=== PATIENT | male | born 1990 | race Caucasian/White ===

== ENCOUNTER 2023-11-13 18:52 | Emergency (ER) | payer BC, OTHER ==
[2023-11-13] MEDS ORDERED: LIDOCAINE 1% 20 ML MDV ONE (22:18)
--- NOTE | 2023-11-13 22:36 | EDPHYS ---
Physician Documentation [facility] Name: Prashant Billingsley Age: 33 yrs Sex: Male : 1990 Arrival Date: 11/13/2023 Time: 18:52 Bed Treatment Private MD: ED Physician Paige Krishnamurthy HPI: 11/12 22:37 This 33 yrs old Male presents to ER via Ambulatory with complaints of Laceration To kb Foot. 22:37 Patient is a 33-year-old male who presents for laceration to dorsal aspect of right kb foot that occurred just prior to arrival. 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 Denies any other injuries.. Historical: - Allergies: 19:21 No Known Allergies; ss - Home Meds: 19:21 None [Active]; ss - PMHx: 19:21 None; ss - Immunization history:: Last tetanus immunization: unknown. - Infectious Disease History:: Denies. - Social history:: Smoking status: Patient denies any tobacco usage or history of. ROS: 22:36 Constitutional: As per HPI kb Exam: 22:36 Constitutional: This is a well developed, well nourished patient who is awake, alert, kb and in no acute distress. Head/Face: Normocephalic, atraumatic. ENT: Moist Mucous membranes Cardiovascular: Regular rate Respiratory: Respirations even and unlabored. No increased work of breathing. Talking in full sentences MS/ Extremity: Pulses equal, no cyanosis. Neurovascular intact. Full, normal range of motion. Neuro: Awake and alert, GCS 15, oriented to person, place, time, and situation. Moves all extremities. Normal gait. 22:36 Skin: injury, laceration(s), the wound is approximately 2.5 cm(s), of the dorsum of right foot, that can be described as clean, no foreign body, linear, without bleeding, Vital Signs: 19:19 BP 156 / 101; Pulse 73; Resp 16; Temp 98(TE); Pulse Ox 97% on R/A; Weight 92.99 kg; ss Height 5 ft. 10 in. ; Pain 6/10; 23:02 BP 131 / 76; Pulse 69; Resp 16; Temp 97.3(O); Pulse Ox 100% on R/A; tl4 19:19 Body Mass Index 29.41 (92.99 kg, 177.8 cm) ss 19:19 Pain Scale: Adult ss Laceration: 22:35 Wound Repair of 2.5cm ( 1.0in ) subcutaneous laceration to dorsum of right foot. Linear kb shaped.. Distal neuro/vascular/tendon intact. Anesthesia: Wound infiltrated with 3 mls of 1% lidocaine. Wound prep: Extensive cleansing with hibiclenz by me, Wound irrigation with saline by me. Skin closed with 5 4-0 Prolene using simple sutures and sterile technique. Patient tolerated well. MDM: 19:00 Patient medically screened. kb 22:35 Differential diagnosis: superficial laceration, tendon injury, vascular injury. Data kb reviewed: vital signs, nurses notes. Counseling: I had a detailed discussion with the patient and/or guardian regarding the historical points, exam findings, and any diagnostic results supporting the discharge/admit diagnosis, the need for outpatient follow up, a family practitioner, to return to the emergency department if symptoms worsen or persist or if there are any questions or concerns that arise at home. 11/12 20:04 Order name: Dressing - Wound; Complete Time: 22:48 kb 11/12 20:04 Order name: Gloves, Sterile; Complete Time: 22:48 kb 11/12 20:04 Order name: Prolene, Sutures; Complete Time: 22:48 kb 11/12 20:04 Order name: Setup Suture Tray; Complete Time: 22:48 kb Administered Medications: 22:48 Drug: Lidocaine Infiltration (1 %) 1 vials 20 ml Infiltration once; to bedside {Note: tl4 administered by JASPER Brooks.} Volume: 20 ml; Route: Infiltration; 23:18 Follow up: Response: No adverse reaction tl4 22:59 Drug: Boostrix Tdap IM 0.5 ml IM once; as a single dose {Note: [employer] Lot tl4 #[id number] Expiration date 12/29/2025 VIS 10/23/2020.} Route: IM; Site: left deltoid; 23:18 Follow up: Response: No adverse reaction tl4 Disposition Summary: 11/13/23 22:36 Discharge Ordered Condition: Stable kb Diagnosis - Laceration without foreign body of foot kb Followup: kb - With: Emergency Department - When: As needed - Reason: Worsening of condition Followup: kb - With: Private Physician - When: 2 - 3 days - Reason: Recheck today's complaints, Continuance of care, Re-evaluation by your physician Discharge Instructions: - Discharge Summary Sheet kb - Laceration Care, Adult, [id number] kb Forms: - Medication Reconciliation Form kb - Antibiotic Education kb - Prescription Opioid Use kb - Patient Portal Instructions kb - Leadership Thank You Letter kb Signatures: Zohreh Black FNP-C FNP-Ckb Blanchard, Shelby, RN RN ss Nakul Tobar RN RN tl4
--- NOTE | 2023-11-13 22:36 | ER ---
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 Pressure dressing placed to wound prior to arrival by spouse. Coronavirus screen: Client denies travel out of the [place] in the last 14 days. Ebola Screen: Patient denies exposure to infectious person. Patient denies travel to an Ebola-affected area in the 21 days before illness onset. Complicating Factors: There are no complicating factors for this patient. Initial Sepsis Screen: Does the patient meet any 2 criteria? No. Patient's initial sepsis screen is negative. Does the patient have a suspected source of infection? No. Patient's initial sepsis screen is negative. Risk Assessment: Do you want to hurt yourself or someone else? Patient reports no desire to harm self or others. Onset of symptoms was November 13, 2023. 19:19 Method Of Arrival: Ambulatory ss 19:19 Acuity: [id number] 4 ss Triage Assessment: 19:21 General: Appears in no apparent distress. comfortable, Behavior is calm, cooperative. ss Pain: Complains of pain in dorsum of right foot Pain currently is 6 out of 10 on a pain scale. Neuro: Level of Consciousness is awake, alert, obeys commands, Oriented to person, place, time, situation. Derm: Skin is pink, warm \T\ dry. Historical: - Allergies: 19:21 No Known Allergies; ss - Home Meds: 19:21 None [Active]; ss - PMHx: 19:21 None; ss - Immunization history:: Last tetanus immunization: unknown. - Infectious Disease History:: Denies. - Social history:: Smoking status: Patient denies any tobacco usage or history of. Screenin:01 [facility] ED Fall Risk Assessment (Adult) History of falling in the last 3 months, tl4 including since admission No falls in past 3 months (0 pts) Confusion or Disorientation No (0 pts) Intoxicated or Sedated No (0 pts) Impaired Gait No (0 pts) Mobility Assist Device Used No (0 pt) Altered Elimination No (0 pt) Score/Fall Risk Level 0 - 2 = Low Risk Oriented to surroundings, Maintained a safe environment, Educated pt \T\ family on fall prevention, incl call for assistance when getting out of bed, Assessed \T\ reinforced patient's understanding of fall precautions. Abuse screen: Denies threats or abuse. Denies injuries from another. Nutritional screening: No deficits noted. Tuberculosis screening: No symptoms or risk factors identified. Assessment: 23:01 General: Appears in no apparent distress. Behavior is calm, cooperative. Pain: tl4 Complains of pain in right foot. Neuro: Level of Consciousness is awake, alert, obeys commands, Oriented to person, place, time, situation. Cardiovascular: Capillary refill < 3 seconds Patient's skin is warm and dry. Respiratory: Airway is patent Respiratory effort is even, unlabored, Respiratory pattern is regular, symmetrical, Breath sounds are clear bilaterally. GI: No signs and/or symptoms were reported involving the gastrointestinal system. : No signs and/or symptoms were reported regarding the genitourinary system. EENT: No signs and/or symptoms were reported regarding the EENT system. Derm: Wound noted right foot Wound is laceration. Musculoskeletal: Circulation, motion, and sensation intact. Capillary refill < 3 seconds, Range of motion: intact in all extremities. Injury Description: Laceration sustained to right foot is clean, not bleeding. 23:18 Reassessment: Delay to discharge due to waiting time after IM injection. tl4 Vital Signs: 19:19 BP 156 / 101; Pulse 73; Resp 16; Temp 98(TE); Pulse Ox 97% on R/A; Weight 92.99 kg; ss Height 5 ft. 10 in. ; Pain 6/10; 23:02 BP 131 / 76; Pulse 69; Resp 16; Temp 97.3(O); Pulse Ox 100% on R/A; tl4 19:19 Body Mass Index 29.41 (92.99 kg, 177.8 cm) ss 19:19 Pain Scale: Adult ss ED Course: 18:56 Patient arrived in ED. mr 18:59 Zohreh Black [facility]-C [facility]. kb 19:00 Paige Krishnamurthy MD is Attending Physician. kb 19:21 Triage completed. ss 19:21 Arm band placed on right wrist. ss 23:03 Patient has correct armband on for positive identification. Bed in low position. Call tl4 light in reach. Side rails up X 1. Adult w/ patient. Provided Education on: ed process, call rosario. 23:03 No provider procedures requiring assistance completed. Patient did not have IV access tl4 during this emergency room visit. 23:03 Wound care: to laceration was dressed with 4X4s, cling. tl4 Administered Medications: 22:48 Drug: Lidocaine Infiltration (1 %) 1 vials 20 ml Infiltration once; to bedside {Note: tl4 administered by JASPER Brooks.} Volume: 20 ml; Route: Infiltration; 23:18 Follow up: Response: No adverse reaction tl4 22:59 Drug: Boostrix Tdap IM 0.5 ml IM once; as a single dose {Note: [employer] Lot tl4 #[id number] Expiration date 12/29/2025 VIS 10/23/2020.} Route: IM; Site: left deltoid; 23:18 Follow up: Response: No adverse reaction tl4 Medication: 23:01 Vaccine Information Statement (VIS) provided today. Questions and/or concerns tl4 addressed. VIS edition date: October 23, 2020. Outcome: 22:36 Discharge ordered by . lashawn 23:17 Discharged to home ambulatory, with family, tl4 23:17 Condition: stable 23:17 Discharge instructions given to patient, family, Instructed on discharge instructions, follow up and referral plans. wound care, Demonstrated understanding of instructions, follow-up care, wound care, 23:17 Patient left the ED. tl4 Signatures: Zohreh Black, JASPER-C JASPER-Isadora Hiral Cardenas, Reg Reg Rae Sarabia, RN RN Nakul Tobar RN RN tl4
[2023-11-13] MEDS ORDERED: TDAP (DIPHTH,PERTUSS(ACELL),TET VAC) 0.5 ML VIAL IMVAC ONE (22:55)
[2023-11-14 00:22] VITALS: BP 131/76; TEMP 97.3; O2SAT 100
== END 2023-11-13 23:17 | disposition home or self-care (01) ==
LOC: ER 18:52
PROC: 0HQMXZZ Repair Right Foot Skin, External Approach (ICD-10-PCS; principal; 2023-11-13)
DX: S91.311A Laceration without foreign body, right foot, initial encounter (principal)
CPT/HCPCS: 96372; 99284; 12041; J2001